=== PATIENT | female | born 1990 | race Caucasian/White ===

== ENCOUNTER → 2021-10-27 16:00 | Outpatient (CLI) | payer OTHER, MEDICAID, SELFPAY ==
[2021-10-27 17:08] LABS: COVID19 -Nasal RAPID Negative (Negative)
== END ==
PROVIDERS: PCP Family Medicine; Visit Provider Specialist
DX: Z20.822 Contact with and (suspected) exposure to COVID-19 (principal); Z01.812 Encounter for preprocedural laboratory examination
CPT/HCPCS: 87635; C9803

== ENCOUNTER 2021-10-28 07:12 | Day surgery (SDC) | payer OTHER, MEDICAID, SELFPAY ==
[2021-10-26 08:06] VITALS: BMI 26.6
--- NOTE | 2021-10-28 | PATH_ITS ---
[facility] Accession Number: [id number] No. of containers..01 Tissue . 01 Material submitted: . peritoneum - PERITONEAL CYST . 01 Diagnosis: Peritoneal Cyst, Excision: Consistent with simple peritoneal inclusion cyst. MRV 11/02/2021 1519 Local . 01 Comment: This case has been reviewed by Dr. Kelly Atwood, who agrees with the above diagnosis. . 01 Electronically signed: . Terrell Lowe MD, Dermatopathologist NPI- [id number] . 01 Gross description: . Received in formalin, labeled with the patient's name and designated 1. Peritoneal cyst, is a 3.5 x 1.5 x 0.2 cm collapsed portion of semitranslucent, smooth, and thin-walled cystic fibromembranous tissue. No discrete thickened areas, excrescences, or other lesions are identified. The tissue is entirely submitted in cassette A1. ([place]:[id number]) /R [id number] Local . 01 Pathologist provided ICD-10: K66.8 . 01 CPT . 268000 Specimen Comment: A courtesy copy of this report has been sent to [phone] Specimen Comment: [id number] Performed at: 01 [facility] [address] [place] [address] [address], [place], [place] [id number] MD Dusty Thompson MD Phone: [phone]
[2021-10-28 07:47] VITALS: BP 114/78; PULSE 75; RESP 16; TEMP 36.3; O2SAT 98; BMI 26.6
--- NOTE | 2021-10-28 08:42 | P.HP_ITS ---
History of Present Illness History of Present Illness Date Patient Seen: 10/28/21 Time Patient Seen: 08:43 Chief complaint: [facility] [place] Narrative: Patient is a 31-year-old 1 para 1 who presents for a diagnostic laparoscopy with possible lysis of adhesions verses fulguration of endometriosis. She has had persistent pelvic pain since her section. She also has pain with her menstrual cycles. Patient History Medical History (Updated 10/17/21 @ 21:46 by Pearl Hermosillo) Anxiety and depression (~2015) Herpes (~2014) Kidney disease (~2015) Polycystic kidney disease (~2015) Surgical History (Updated 10/17/21 @ 21:46 by Pearl Hermosillo) Anesthesia History of section (~12/11/19) Family & Social History Family History (Updated 10/17/21 @ 21:46 by Pearl Hermosillo) Father History of heart disease PKD (polycystic kidney disease) Social History: household members spouse Tobacco & Substance use: Smoking Status Current some day smoker alcohol intake never Substance Use Type marijuana Meds Home Medications and Allergies Home Medications Medication Instructions Recorded Confirmed Type lisinopril 5 mg tablet 5 mg PO DAILY 10/04/21 10/26/21 History sertraline 50 mg tablet (Zoloft) 50 mg PO DAILY 10/04/21 10/26/21 History lisinopril 5 mg tablet mg 10/28/21 History Allergies Allergy/AdvReac Type Severity Reaction Status Date / Time ibuprofen AdvReac Mild has kidney Verified 10/28/21 08:05 disease Exam Vital Signs (past 8 hours): - 10/28/21 07:47 Temperature 97.4 F L Pulse Rate 75 Respiratory Rate 16 Blood Pressure 114/78 Pulse Oximetry 98 Oxygen Delivery Method Room Air Oxygen Delivery Method Room Air Narrative Exam Narrative: HEENT: No thyromegaly, no anterior cervical or supraclavicular lymphadenopathy. Lungs:Clear to auscultation bilaterally, no wheezes. Cardiovascular: Regular rate and rhythm, no murmurs, rubs, or gallops. Abdomen: Well-healed Pfannenstiel scar. No hepatosplenomegaly. No masses palpable. External genitalia: Normal Vagina: Normal Cervix: Normal Bimanual exam: 6 Week size anterior uterus. Bilateral uterosacral tenderness. Rectal: No masses or tenderness Assessment & Plan Assessment & Plan narrative: Assessment: 31-year-old 1 para 1 with persistent pelvic pain after a section Bilateral uterus sacral tenderness and pain with menstrual cycles Plan: Diagnostic laparoscopy with possible lysis of adhesions versus fulguration of endometriosis The risks, benefits, and alternatives to the procedure were explained to the patient. The risks including bleeding, infection, injury to the bowel, bladder, or ureters. She understands these risks and agrees to proceed. A full par Q was held and consent form was signed. COVID-19 COVID-19 status: Negative Result date/Date tested (Pos, Neg/Pending): 10/27/21 Time Spent With Patient Time with patient: less than 30 minutes Critical Care time: I spent a total of [] minutes of critical care time on this patient's care today; this time is exclusive of procedural time.
--- NOTE | 2021-10-28 08:45 | PM.PREOP ---
Pre-operative Note COVID-19 COVID-19 status: Negative Result date/Date tested (Pos, Neg/Pending): 10/27/21 Criteria for continued procedure: Non-surgical alternatives not available or appropriate per current SOC Interval Note History & Physical reviewed/Exam performed by Physician: Yes Changes to H&P: No H&P completed within 30 days and has changed as indicated here:: 10/28/21
[2021-10-28] MEDS: BUPIVACAINE 0.5% W/ EPI (PF) 30 ML VIAL 25 ML INJ (09:50)
[2021-10-28 10:10] VITALS: BP 113/71; PULSE 80; RESP 16; TEMP 36.2; O2SAT 98
--- NOTE | 2021-10-28 10:10 | P.OP_ITS ---
Operative Date/Time/Diagnoses Date of procedure: 10/28/21 Time of procedure: 10:10 Pre-op diagnosis: Persistent pelvic pain after section Suspicion for endometriosis verses adhesions Pain with menses Post-op diagnosis: same Procedure & Clinicians Procedure: Procedures Operation Date: 10/28/21 09:15 Actual Procedure Side Surgeon barry HOLLOWAY Laparoscopy, lysis of adhesions Kya Harden MD Indications: Persistent pelvic pain after section Pain with menses Suspicion of endometriosis Surgeon: Kya Harden Anesthesia Type: General and Local Operative Notes Findings: 6 week size anteverted uterus Omental to anterior abdominal wall adhesions, underneath previous Pfannenstiel incision Normal liver, gallbladder, and appendix Normal right tube and ovary Normal left tube and ovary Left pelvic sidewall adhesions with omentum Posterior cul-de-sac ?peritoneal cysts?, 1 of which was stuck to the posterior cul-de-sac No evidence of endometriosis in the anterior/posterior cul-de-sac, bilateral ovarian fossa, for on the tubes or ovaries. Closure Type: primary Specimen(s): other (peritoneal cyst) Applied: catheter (In an hour) Estimated blood loss (mL): 5 Blood products transfused: none Procedure in detail: After informed consent was obtained, the patient was taken to the operating room where she was placed in the dorsal supine position. After adequate general endotracheal anesthesia was achieved, she was placed in the dorsal lithotomy position, and prepped and draped in the usual sterile fashion. A time-out was performed. A red rubber catheter was placed into the bladder and drained 50 cc of clear yellow urine. A bivalve speculum was placed into the vagina and the anterior lip of the cervix was grasped with a single-tooth tenaculum. Cervical os was sequentially dilated until the Zumi uterine manipulator could pass easily into the endometrial cavity. The single-tooth tenaculum was removed from the anterior lip of the cervix. The bivalve speculum was removed from the vagina. A moistened sponge stick was also placed into the vagina. Attention was then turned to the abdomen where 6 cc of 0.5% Marcaine with epinephrine were injected in the umbilical fold. A 5 mm incision was made. The Veress needle was placed into the peritoneal cavity, and its placement confirmed by aspiration and drop test. The abdominal cavity was insufflated with 3.5 L of CO2. The Veress nee dle was removed, and a 5 mm trocar was placed without difficulty. A second incision was made 4 cm to the left the umbilicus after 6 cc of 0.5% Marcaine with epinephrine were injected. A 5 mm incision was made. A second 5 mm trocar was placed under direct visualization. The pelvis and abdomen were examined all of the findings noted above. A third incision was made 4 cm lateral on the right side of the umbilicus. A third 5 mm trocar was placed. The uterus was elevated out of the pelvis. In the posterior cul-de-sac there were peritoneal cysts which were removed. These were sent for pathology. One of them was stuck to the posterior wall and this was removed with gentle traction. On the left side there was omentum stuck to the left pelvic sidewall. This was grasped with an atraumatic grasper. Using the power seal cautery and cut were used to free the omentum from the left pelvic sidewall. Care was taken to avoid the bowel. There was omentum stuck to the anterior abdominal wall underneath the previous Pfannenstiel incision. This was grasped with an atraumatic grasper and the power seal was used to cauterize and cut to free this from the abdominal wall. There was no evidence of endometriosis. The instruments were removed from the abdomen. The CO2 was allowed to escape. The remaining local was placed in the incisions. The incisions were closed with 4-0 Monocryl in a subcuticular fashion. Steri-Strips and Allevyn dressings were placed. The red rubber catheter was removed from the bladder. The Zumi uterine manipulator was removed from the uterus. The moistened sponge stick was removed from the vagina. Sponge, lap, and instrument counts were correct x2. The patient tolerated the procedure well, and was taken to PACU in stable condition. Complications: none Post-operative Condition: stable Disposition: PACU Plan for aftercare: Home after recovery
[2021-10-28 10:15] VITALS: BP 110/70; PULSE 84; RESP 16; O2SAT 98
[2021-10-28 10:20] VITALS: BP 110/70; PULSE 83; RESP 16; TEMP 36.8; O2SAT 98
[2021-10-28 10:27] VITALS: BP 112/70; PULSE 82; RESP 16; TEMP 36.2; O2SAT 98
[2021-10-28] MEDS: OXYCODONE/ACETAMINOPHEN 5/325 TABLET 1 TAB PO (10:30)
[2021-10-28 10:47] VITALS: BP 111/75; PULSE 82; RESP 16; TEMP 36.3; O2SAT 99
[2021-10-28] MEDS: LACTATED RINGERS 1,000 ML 100 ML IV (10:53)
== END 2021-10-28 10:56 | disposition home or self-care (01) ==
PROVIDERS: PCP Family Medicine; Referring Provider Obstetrics & Gynecology; Visit Provider Obstetrics & Gynecology
PROC: 0U5B4ZZ Destruction of Endometrium, Percutaneous Endoscopic Approach (ICD-10-PCS; CPT 58662; principal; 2021-10-28 09:15)
DX: R10.2 Pelvic and perineal pain (principal); K66.8 Other specified disorders of peritoneum
CPT/HCPCS: 44180; J0131; J1100; J2250; J2405; J3010